=== PATIENT | female | born 1975 | race American Indian/Alaskan Native ===

== ENCOUNTER 2016-08-05 23:14 | Emergency (ER) | payer MEDICAID ==
[2016-08-05 23:32] VITALS: BP 145/90
[2016-08-06 00:57] LABS: Basophils % (Auto) 0.3 % (0.0-1.8); Eosinophils % (Auto) 0.6 % (0.0-4.3); Hematocrit 35.4 % (30.3-42.9); Hemoglobin 11.5 gm/dl (10.1-14.3); Mean Corpuscular HGB Conc 32 % (30-34); Mean Corpuscular Hemoglobin 28 pg (28-32); Mean Corpuscular Volume 88 fl (79-97); Platelet Count 245 K/mm3 (140-440); Red Blood Count 4.04 M/mm3 (3.65-5.03); Red Cell Distribution Width 14.7 % (13.2-15.2)
--- NOTE | 2016-08-06 01:58 | Ultrasound Report ---
FINAL REPORT EXAM: US OB \T\gt; = 14 WEEKS FETUS HISTORY: vag bleeding/ cramping TECHNIQUE: Limited real-time sonography was performed of the gravid uterus and images are submitted for interpretation. PRIORS: None. FINDINGS: Detailed anatomic survey was not performed. There is a single fetus in the uterus in a breech presentation. The placenta is anterior and the os is clear. The cervix is long and closed measuring 3.5 cm. The heart is beating at a rate of 142 beats per minute. Biometric measurements give an estimated gestational age of 16 weeks 5 days. Bilateral maternal adnexa were scanned. The ovaries are not seen. IMPRESSION: Single, live intrauterine gestation, estimated gestational age 16 weeks 5 days for an estimated date of confinement of 01/16/2017. Breech presentation
== END 2016-08-06 02:21 | disposition left against medical advice (07) ==
LOC: ED 23:14
DX: O26.892 Other specified pregnancy related conditions, second trimester (principal); R10.9 Unspecified abdominal pain; Z3A.16 16 weeks gestation of pregnancy
CPT/HCPCS: 36415; 76805; 84702; 85025; 86900; 86901